=== PATIENT | female | born 1970 | race Two or more races ===

== ENCOUNTER 2020-10-12 14:33 | Emergency (ER) | payer OTHER ==
[2020-10-12 14:56] VITALS: TEMP 98.6; BMI 25.8
[2020-10-12] MEDS ORDERED: KETOROLAC TROMETHAMINE 30 MG/1 ML VIAL IVPUSH ONE (16:35)
[2020-10-12] MEDS ORDERED: ACETAMINOPHEN 1000 MG/100 ML VIAL (NON FORMULARY) IVPB ONE (16:35)
[2020-10-12 17:07] LABS: EPI CELLS 14 /uL (0-25.1); HYALINE CASTS 24 /uL (0-3.1); URINE AMPHETAMINES NEGATIVE ng/ml (CUTOFF=500); URINE APPEARANCE CLEAR; URINE BACTERIA 262 /uL (0-1359); URINE BARBITURATES NEGATIVE ng/ml (CUTOFF=200); URINE BENZODIAZEPINES NEGATIVE ng/ml (CUTOFF=200); URINE BILIRUBIN 2+ (NEGATIVE); URINE COLOR DK YELLOW; URINE GLUCOSE (UA) NEGATIVE (NEGATIVE); URINE KETONE 3+ (NEGATIVE); URINE LEUK ESTERASE 1+ (NEGATIVE); URINE NITRITE NEGATIVE (NEGATIVE); URINE PROTEIN 2+ (NEGATIVE); URINE RBC 468 /uL (0-23.9); URINE WBC 274 /uL (0-25.8)
[2020-10-12 17:09] LABS: METHADONE, UR NEGATIVE ng/ml (CUTOFF=300); OPIATES, URI NEGATIVE ng/ml (CUTOFF=300); PHENCYCLIDINE,URINE NEGATIVE ng/ml (CUTOFF=25)
[2020-10-12] MEDS ORDERED: KETOROLAC TROMETHAMINE 30 MG/1 ML VIAL ONE (17:18)
[2020-10-12 17:29] LABS: COCAINE, UR POSITIVE ng/ml (CUTOFF=300)
[2020-10-12 17:42] LABS: BASO % 1.1 % (0-2.0); EOS % 0.2 % (0-4.5); HEMATOCRIT 33.7 % (32.4-45.2); HEMOGLOBIN 11.4 GM/dL (10.7-15.3); LYMPH % 24.9 % (8-40); MCH 30.8 pg (25.7-33.7); MCHC 33.7 g/dl (32.0-36.0); MEAN CELL VOLUME 91.4 fl (80-96); MEAN PLT VOLUME 8.8 fl (7.5-11.1); MONO % 7.4 % (3.8-10.2); NEUT % 66.4 % (42.8-82.8); PLATELET COUNT 315 K/MM3 (134-434); RBC 3.69 M/mm3 (3.60-5.2); RDW 16.2 % (11.6-15.6); WHITE BLOOD COUNT 8.1 K/mm3 (4.0-10.0)
[2020-10-12 17:57] LABS: POTASSIUM 3.1 mmol/L (3.5-5.1)
[2020-10-12 17:59] LABS: CALCIUM 9.5 mg/dL (8.5-10.1)
[2020-10-12] MEDS ORDERED: SODIUM CHLORIDE 1,000 ML IV STA (17:59)
[2020-10-12 18:00] LABS: ALBUMIN 3.8 g/dl (3.4-5.0); BLOOD UREA NITROGEN 18.9 mg/dL (7-18)
[2020-10-12 18:03] LABS: CREATININE 0.9 mg/dL (0.55-1.3)
[2020-10-12 18:05] LABS: BILIRUBIN,TOTAL 0.4 mg/dL (0.2-1); TOT PROT 7.7 g/dl (6.4-8.2)
[2020-10-12] MEDS ORDERED: POTASSIUM CHLORIDE ORAL LIQUID 20 MEQ/15 ML PO ONE (18:22)
[2020-10-12] MEDS ORDERED: CEFTRIAXONE 1 GM in DEXTROSE 5%-WATER - 50 ML IVPB ONE (18:35)
[2020-10-12 18:55] LABS: HIV INTERPRETATION NEGATIVE (NEGATIVE)
[2020-10-12] MEDS ORDERED: POTASSIUM CHLORIDE ORAL LIQUID 20 MEQ/15 ML ONE (19:16)
[2020-10-12] MEDS ORDERED: CEFTRIAXONE 1 GM/50 ML BAG ONE (19:17)
[2020-10-12 20:17] VITALS: PULSE 64
[2020-10-12] MEDS ORDERED: amLODIPine BESYLATE 10 MG TABLET (FP) PO ONE (20:23)
[2020-10-12] MEDS ORDERED: HYDROCHLOROTHIAZIDE 25 MG TABLET (FP) PO ONE (20:23)
[2020-10-12] MEDS ORDERED: amLODIPine BESYLATE 5 MG TABLET (FP) ONE (20:32)
[2020-10-12] MEDS ORDERED: HYDROCHLOROTHIAZIDE 25 MG TABLET (FP) ONE (20:32)
[2020-10-12] MEDS ORDERED: traMADol HCL 50 MG TABLET PO ONE (21:41)
[2020-10-12] MEDS ORDERED: traMADol HCL 50 MG TABLET ONE (21:43)
[2020-10-12 21:52] VITALS: BP 185/103
== END 2020-10-12 22:30 | disposition home or self-care (01) ==
LOC: JER 14:33
PROC: 3E03329 Introduction of Other Anti-infective into Peripheral Vein, Percutaneous Approach (ICD-10-PCS; principal; 2020-10-12)
PROC: 3E0333Z Introduction of Anti-inflammatory into Peripheral Vein, Percutaneous Approach (ICD-10-PCS; 2020-10-12)
PROC: 3E033NZ Introduction of Analgesics, Hypnotics, Sedatives into Peripheral Vein, Percutaneous Approach (ICD-10-PCS; 2020-10-12)
PROC: 3E0337Z Introduction of Electrolytic and Water Balance Substance into Peripheral Vein, Percutaneous Approach (ICD-10-PCS; 2020-10-12)
DX: N39.0 Urinary tract infection, site not specified (principal); R03.0 Elevated blood-pressure reading, without diagnosis of hypertension; R10.9 Unspecified abdominal pain
CPT/HCPCS: 36415; 74176-TC; 80053; 80307; 81003; 83690; 84703; 85025; 87086; 87389; 99285-25; J0131